=== PATIENT | male | born 1945 | race Caucasian/White ===

== ENCOUNTER 2018-10-31 06:46 | Day surgery (SDC) | payer OTHER ==
[2018-10-30 16:22] VITALS: BP 186/86
[2018-10-30 16:23] LABS: BASOPHILS % (AUTO) 0.8 % (0.0-5.0); EOSINOPHILS % (AUTO) 1.6 % (0.0-8.0); HEMATOCRIT 41.2 % (42-54); LYMPHOCYTES % (AUTO) 20.2 % (21.0-51.0); MEAN CORPUSCULAR HEMOGLOBIN 29.2 pg (27.0-33.0); MEAN CORPUSCULAR HGB CONC 32.9 g/dL (32.0-36.0); MONOCYTES % (AUTO) 8.9 % (3.0-13.0); NEUTROPHILS % (AUTO) 68.5 % (40.0-77.0); PLATELET COUNT (AUTO) 192 K/uL (130-400); RED BLOOD CELL COUNT(AUTO) 4.63 MIL/uL (4.50-6.20); RED CELL DISTRIBUTION WIDTH 15.9 % (11.0-15.5); WHITE BLOOD COUNT (AUTO) 6.6 K/uL (4.8-10.8)
[2018-10-30 16:31] LABS: CREATININE 1.3 mg/dL (0.5-1.5); POTASSIUM 4.4 mmol/L (3.5-5.1)
[2018-10-31] VITALS (14 sets, daily range): BP systolic 75–130; BP diastolic 42–67
[~2018-10-31] VITALS: Ht 175.3 cm; Wt 107.0 kg
[~2018-10-31 06:46] MED LIST: CEFAZOLIN 3GM /D5W 100ML 100 ML IV SCH
[2018-10-31] MEDS ORDERED: BUPIVACAINE/PF 0.5% 10ML VIAL ONE (07:30)
[2018-10-31] MEDS ORDERED: SODIUM CHLORIDE 0.9% 1000ML 1,000 ML IV ONE (07:33)
[2018-10-31] MEDS ORDERED: CEFAZOLIN SODIUM 1 GM VIAL ONE (07:33)
[2018-10-31] MEDS ORDERED: IOPAMIDOL 10 ML VIAL ONE (07:47)
--- NOTE | 2018-10-31 07:55 | NUR ---
POTENTIAL FOR INFECTION: NO SHAVING TO RIGHT HIP NEEDED VOICED PER SUSIE RAMOS. WIPED WITH JAYDEN: 2% CHLORHEXIDINE GLUCONATE CLOTH PATIENTS PRE-OP SKIN PREP PER SUSIE RAMOS.
[2018-10-31] MEDS ORDERED: FURO40TA5 PO (08:04)
[2018-10-31] MEDS ORDERED: FINA5TAB41 PO (08:04)
[2018-10-31] MEDS ORDERED: CHOL100040 PO (08:04)
[2018-10-31] MEDS ORDERED: ROSU20TA31 PO (08:04)
[2018-10-31] MEDS ORDERED: ISOS60TA4 PO (08:04)
[2018-10-31] MEDS ORDERED: LOSA100T58 PO (08:04)
[2018-10-31] MEDS ORDERED: METF-446 PO (08:04)
[2018-10-31] MEDS ORDERED: BUDE10.22 IH (08:04)
[2018-10-31] MEDS ORDERED: CARV25TA PO (08:04)
[2018-10-31] MEDS ORDERED: LEVO25TA54 PO (08:04)
[2018-10-31] MEDS ORDERED: AMLO5TAB9 PO (08:04)
[2018-10-31] MEDS ORDERED: ACET-2743 PO (08:04)
[2018-10-31] MEDS ORDERED: ASPI-1181 PO (08:04)
[2018-10-31] MEDS ORDERED: RANO10004 PO (08:04)
[2018-10-31] MEDS ORDERED: IBUP-2070 PO (08:04)
[2018-10-31] MEDS ORDERED: MIDAZOLAM HCL 1 MG/ML 2ML VIAL ONE ×2 (08:19→08:30)
[2018-10-31] MEDS ORDERED: PROPOFOL 10 MG/ML 20ML VIAL IV ONE (08:19)
[2018-10-31] MEDS ORDERED: FENTANYL CITRATE PF 50 MCG/1 ML 2ML VIAL ONE (08:20)
[2018-10-31] MEDS ORDERED: PHENYLEPHRINE HCL 10 MG/ML 1ML VIAL IV ONE (08:42)
[2018-10-31] MEDS ORDERED: EPHEDRINE SULFATE 50 MG/ML AMPULE ONE (09:18)
--- NOTE | 2018-10-31 10:00 | NUR ---
RECEIVE PT RECEIVED FROM PACU VIA STRETCHER AWAKE ALERT ORIENTED X3. PT STABLE. NO COMPLAINTS MADE. BAND AID TO RIGHT HIP DRY AND INTACT, NO OOZING NOTED, NO SWELLING NO REDNESS TO INJECTION SITE. WILL CALL FAMILY TO COME IN TO ROOM. CALL [facility] WITHIN REACH.
--- NOTE | 2018-10-31 10:35 | NUR ---
DISCHARGE PT DISCHARGED VIA WHEELCHAIR WITH . PT STABLE. BAND AID TO RIGHT HIP REMAINS DRY AND INTACT, NO OOZING NOTED, NO SWELLING NO REDNESS TO SITE. DISCHARGE INSTRUCTIONS GIVEN TO . VERBALIZED UNDERSTANDING.
== END 2018-10-31 10:35 | disposition home or self-care (01) ==
LOC: DAH 06:46
PROVIDERS: ATTEND Orthopaedic Surgery
DX: M25.851 Other specified joint disorders, right hip (principal); M25.551 Pain in right hip; G89.29 Other chronic pain; E11.21 Type 2 diabetes mellitus with diabetic nephropathy; E11.22 Type 2 diabetes mellitus with diabetic chronic kidney disease; I13.0 Hypertensive heart and chronic kidney disease with heart failure and stage 1 through stage 4 chronic kidney disease, or unspecified chronic kidney disease; N18.9 Chronic kidney disease, unspecified; I25.118 Atherosclerotic heart disease of native coronary artery with other forms of angina pectoris; I50.30 Unspecified diastolic (congestive) heart failure; G47.33 Obstructive sleep apnea (adult) (pediatric); I69.851 Hemiplegia and hemiparesis following other cerebrovascular disease affecting right dominant side; Z68.34 Body mass index [BMI] 34.0-34.9, adult; Z79.899 Other long term (current) drug therapy; Z98.890 Other specified postprocedural states; Z79.82 Long term (current) use of aspirin; Z87.891 Personal history of nicotine dependence; Z88.8 Allergy status to other drugs, medicaments and biological substances; Z82.49 Family history of ischemic heart disease and other diseases of the circulatory system; Z83.3 Family history of diabetes mellitus
CPT/HCPCS: 20610; 36415; 73502; 77002; 80048; 82948 ×2; 85025; 93005; J0690; J1030; J2250 ×2; J2370; J2704; J3010; J3490 ×2; J7030; Q9966

== ENCOUNTER → 2021-03-15 | Outpatient (CLI) | payer OTHER ==
[~2021-03-15] VITALS: Ht 177.8 cm; Wt 110.5 kg
[~2021-03-15] MED LIST changes: +0.9%NACL 1000ML 1,000 ML IV SCH; +ACET-2743 PO; +AMLO-257 PO; +ASPI-1443 PO; +BUDE10.2 IH; +BUDE10.22 IH; +CARV25TA PO; -CEFAZOLIN 3GM /D5W 100ML 100 ML IV SCH; +CHLO25TA3 PO; +CHOL100040 PO; +EMPA25TA PO; +FERR324T23 PO; +FINA5TAB41 PO; +FURO40TA5 PO; +GLIP10TA9 PO; +IBUP-2070 PO; +ISOS30TA92 PO; +ISOS60TA77 PO; +LEVO25TA54 PO; +LEVO50CA4 PO; +LOSA100T58 PO; +METF-446 PO; +NITR0.4T50 SL; +POTA-79 PO; +RANO10005 PO; +ROSU20TA31 PO; +VITA1CAP85 PO
[2021-03-15 12:57] LABS: BASOPHILS % (AUTO) 0.8 % (0.0-5.0); EOSINOPHILS % (AUTO) 2.4 % (0.0-8.0); HEMATOCRIT 42.2 % (42-54); LYMPHOCYTES % (AUTO) 24.7 % (21.0-51.0); MEAN CORPUSCULAR HEMOGLOBIN 30.2 pg (27.0-33.0); MEAN CORPUSCULAR VOLUME 94.4 fL (79-99); MONOCYTES % (AUTO) 9.7 % (3.0-13.0); NEUTROPHILS % (AUTO) 61.9 % (40.0-77.0); PLATELET COUNT (AUTO) 208 K/uL (130-400); RED BLOOD CELL COUNT(AUTO) 4.47 MIL/uL (4.50-6.20); RED CELL DISTRIBUTION WIDTH 15.4 % (11.0-15.5); WHITE BLOOD COUNT (AUTO) 7.5 K/uL (4.8-10.8)
[2021-03-15 13:07] LABS: APPEARANCE,URINE Clear (CLEAR); BILIRUBIN,URINE Negative (NEGATIVE); COLOR,URINE Yellow (YELLOW); GLUCOSE, URINE (UA) >=1000 mg/dL (NEGATIVE); KETONES,URINE Negative (NEGATIVE); LEUKOCYTE ESTERASE ,URINE Negative (NEGATIVE); NITRATE,URINE Negative (NEGATIVE); OCCULT BLOOD,URINE Negative (NEGATIVE); PROTEIN,URINE Negative (NEGATIVE); UROBILINOGEN,URINE 0.2 mg/dL (0.2-1.0)
[2021-03-15 13:12] LABS: INR 1.02 (0.85-1.15); PROTHROMBIN TIME 11.1 SEC (9.6-11.6)
[2021-03-15 13:15] LABS: CREATININE 1.5 mg/dL (0.5-1.5); POTASSIUM 3.8 mmol/L (3.5-5.1)
[2021-03-15 13:22] LABS: BACTERIA,URINE Rare /HPF (None Seen); RBC,URINE 0-1 /HPF (0-1); SQUAMOUS EPITHELIAL CELL,UR Rare /HPF (0-2); WBC,URINE 0-1 /HPF (0-1)
[2021-03-16 09:03] VITALS: BP 147/67
== END | disposition home or self-care (01) ==
LOC: DAH 10:00 → EDSTATUS 11:00
PROVIDERS: ATTEND Internal Medicine Cardiovascular Disease
DX: Z01.810 Encounter for preprocedural cardiovascular examination (principal); I44.0 Atrioventricular block, first degree; I25.119 Atherosclerotic heart disease of native coronary artery with unspecified angina pectoris; J44.9 Chronic obstructive pulmonary disease, unspecified; Z79.01 Long term (current) use of anticoagulants
CPT/HCPCS: 36415; 71045; 80048; 81001; 85025; 85610; 85730; 93005